=== PATIENT | female | born 1980 | race Caucasian/White ===

== ENCOUNTER 2019-12-26 22:52 | Emergency (ER) | payer MEDICAID ==
[2019-12-26] MEDS ORDERED: SYNTHROID0.075 MG PO (23:04)
[2019-12-26] MEDS ORDERED: WELLBUTRIN XL300 M1 PO (23:04)
[2019-12-26] MEDS ORDERED: VITAMIN D31250 MC1 PO (23:05)
[2019-12-26] MEDS ORDERED: MOBIC7.5 MG PO (23:05)
[2019-12-26] MEDS ORDERED: BUSPAR 15MG TAB15 MG PO (23:05)
[2019-12-26] MEDS ORDERED: VITAMIN B122500 MC1 PO (23:06)
[2019-12-27 00:06] VITALS: BP 106/68
== END 2019-12-27 00:06 | disposition home or self-care (01) ==
LOC: ED 22:52
DX: L30.8 Other specified dermatitis (principal); E03.9 Hypothyroidism, unspecified; F31.9 Bipolar disorder, unspecified; F17.210 Nicotine dependence, cigarettes, uncomplicated
CPT/HCPCS: J1040

== ENCOUNTER → 2020-03-30 | Outpatient (CLI) | payer MEDICAID ==
[~2020-03-30] MED LIST: BUSPAR 15MG TAB15 MG PO; MOBIC7.5 MG PO; SYNTHROID0.075 MG PO; VITAMIN B122500 MC1 PO; VITAMIN D31250 MC1 PO; WELLBUTRIN XL300 M1 PO
[2020-03-30 19:38] LABS: EOS # 0.1 (0.04-0.40); LYMPH# 2.7 (1.50-4.00); MEAN CELL VOLUME 94 fl (78-100); MEAN CORPUSCULAR HEMOGLOBIN 32 pg (27-31); MEAN CORPUSCULAR HGB CONC 34 g/dL (33-37); MEAN PLATELET VOLUME 9.8 fl (7.4-10.4); MONO # 0.7 (0.20-0.80); NEU # 4.3 (1.40-6.50); PLATELET COUNT 232 K/mm3 (130-400); RED CELL DISTRIBUTION WIDTH 12.3 % (11.5-14.5); WHITE BLOOD COUNT 7.8 K/mm3 (4.8-10.8)
[2020-03-30 19:48] LABS: ALBUMIN 4.5 g/dL (3.5-5.0); POTASSIUM 3.9 mmol/L (3.5-5.1)
[2020-03-30 19:49] LABS: CALCIUM 10.2 mg/dL (8.3-10.5)
[2020-03-30 19:50] LABS: TOTAL PROTEIN 7.7 g/dL (6.4-8.3)
[2020-03-30 19:52] LABS: TOTAL BILIRUBIN 0.7 mg/dL (0.2-1.2)
== END ==
LOC: LAB 19:20
PROVIDERS: Nurse Practitioner
DX: R53.83 Other fatigue (principal); R63.1 Polydipsia

== ENCOUNTER 2020-04-09 12:28 | Emergency (ER) | payer MEDICAID ==
[2020-04-09 13:05] LABS: EOS # 0.2 (0.04-0.40); HEMATOCRIT 45.8 % (37.0-47.0); LYMPH# 1.9 (1.50-4.00); MEAN CELL VOLUME 93 fl (78-100); MEAN CORPUSCULAR HEMOGLOBIN 33 pg (27-31); MEAN CORPUSCULAR HGB CONC 35 g/dL (33-37); MEAN PLATELET VOLUME 10.3 fl (7.4-10.4); MONO # 0.5 (0.20-0.80); NEU # 2.7 (1.40-6.50); PLATELET COUNT 210 K/mm3 (130-400); RED BLOOD COUNT 4.93 M/mm3 (4.10-5.30); WHITE BLOOD COUNT 5.3 K/mm3 (4.8-10.8)
[2020-04-09] MEDS ORDERED: SYNTHROID RP0.088 MG PO (13:16)
[2020-04-09 13:59] LABS: ERYTHROCYTE SEDIMENTATION RATE 6 mm/hr (0-20)
[2020-04-09] MEDS ORDERED: SUMATRIPTAN SUC50 M1 PO (14:41)
[2020-04-09 15:41] VITALS: BP 99/61
== END 2020-04-09 16:00 | disposition home or self-care (01) ==
LOC: ED 12:28
PROVIDERS: Family Medicine
DX: R51 Headache (principal); F17.200 Nicotine dependence, unspecified, uncomplicated; E03.9 Hypothyroidism, unspecified; Z79.890 Hormone replacement therapy
CPT/HCPCS: J7030

== ENCOUNTER 2021-02-03 23:08 | Emergency (ER) | payer MEDICAID ==
[~2021-02-03 23:08] MED LIST changes: +SUMATRIPTAN SUC50 M1 PO; +SYNTHROID RP0.088 MG PO
[2021-02-03 23:28] VITALS: BP 103/58
[2021-02-04 00:24] LABS: BASO # 0.01 (0.02-0.10); EOS # 0.08 (0.04-0.40); EOS % 1.4 % (1.0-5.0); HEMATOCRIT 39.3 % (37.0-47.0); HEMOGLOBIN 13.6 g/dL (12.5-16.0); MEAN CELL VOLUME 93 fl (78-100); MEAN CORPUSCULAR HEMOGLOBIN 32 pg (27-31); MEAN CORPUSCULAR HGB CONC 35 g/dL (33-37); MEAN PLATELET VOLUME 9.7 fl (7.4-10.4); NEU # 2.95 (1.40-6.50); PLATELET COUNT 183 K/mm3 (130-400); RED BLOOD COUNT 4.22 M/mm3 (4.10-5.30); WHITE BLOOD COUNT 5.6 K/mm3 (4.8-10.8)
[2021-02-04 00:40] LABS: ALBUMIN 3.5 g/dL (3.5-5.0); POTASSIUM 3.9 mmol/L (3.5-5.1)
[2021-02-04 00:42] LABS: CALCIUM 9.2 mg/dL (8.3-10.5)
[2021-02-04 00:45] LABS: TOTAL BILIRUBIN 0.2 mg/dL (0.2-1.2)
[2021-02-04 01:01] LABS: D-DIMER 0.57 mg/L FEU (0.15-0.50)
== END 2021-02-04 00:54 | disposition left against medical advice (07) ==
LOC: ED 23:08
PROVIDERS: Family Medicine
DX: U07.1 COVID-19 (principal); F41.9 Anxiety disorder, unspecified; F32.9 Major depressive disorder, single episode, unspecified; F17.290 Nicotine dependence, other tobacco product, uncomplicated; Z79.899 Other long term (current) drug therapy